=== PATIENT | male | born 1970 | race African-American/Black ===

== ENCOUNTER 2025-02-01 08:15 | Emergency (ER) | payer SELFPAY ==
[2025-02-01 08:23] VITALS: BMI 33.0
[2025-02-01] MEDS ORDERED: ASPIRIN 81 MG CHEWABLE TABLETS ONE ×2 (08:52→09:22)
[2025-02-01] MEDS: ASPIRIN 81 MG CHEWABLE TABLETS PO ONE ×2 (08:55→09:30)
[2025-02-01 09:12] LABS: ABSOLUTE IMMATURE GRANULOCYTES 0.01 x10^3/uL (0.0-0.031); BASOPHILS # 0.03 x10^3/uL (0.01-0.08); EOSINOPHIL % 1.5 % (0.8-7.0); EOSINOPHILS # 0.09 x10^3/uL (0.04-0.54); HEMOGLOBIN 14.5 g/dL (13.7-17.5); MCHC 30.2 g/dl (32.3-36.5); MEAN CELL VOLUME 67.3 fl (79.0-92.2); MEAN PLT VOLUME 9.3 fl (9.4-12.4); MONOCYTE # 0.52 x10^3/uL (0.30-0.82); MONOCYTE % 8.6 % (5.3-12.2); PLATELET COUNT 262 x10^3/uL (163-337); RDW 18.3 % (12.2-16.1)
[2025-02-01] MEDS ORDERED: HEPARIN NA (PORCINE) 5,000 UNITS/ML 1ML VIAL ONE (09:19)
[2025-02-01] MEDS ORDERED: HEPARIN NA (PORCINE) 5,000 UNITS/ML 1ML VIAL IVPUSH PRN ×2 (09:20)
[2025-02-01 09:22] LABS: POTASSIUM 3.8 mmol/L (3.5-5.1)
[2025-02-01 09:25] LABS: CALCIUM 9.8 mg/dL (8.5-10.1)
[2025-02-01 09:25] LABS: INR 1.04 (0.83-1.09); PROTHROMBIN TIME (PATIENT) 11.4 SEC (9.7-13.0)
[2025-02-01 09:26] LABS: ALBUMIN 4.1 g/dl (3.4-5.0); BLOOD UREA NITROGEN 9.3 mg/dL (7-18)
[2025-02-01 09:28] LABS: ACTIVATED PTT 31.5 SECONDS (25.2-36.5)
[2025-02-01 09:29] LABS: CREATININE 1.1 mg/dL (0.55-1.3)
[2025-02-01 09:30] LABS: BILIRUBIN,TOTAL 1.2 mg/dL (0.2-1); TOT PROT 7.6 g/dl (6.4-8.2)
[2025-02-01] MEDS: HEPARIN NA (PORCINE) 5,000 UNITS/ML 1ML VIAL IVPUSH ONE (09:30)
[2025-02-01] MEDS: HEPARIN INFUSION - 25,000 UNITS/500 ML INFUS.BAG IVPB SCH (09:44)
[2025-02-01 09:51] VITALS: BP 133/85; PULSE 90; RESP 18; TEMP 98
[2025-02-01 15:08] LABS: HIV INTERPRETATION NEGATIVE (NEGATIVE)
[2025-02-01 15:09] LABS: HCV DIAGNOSTIC IN-HOUSE W/RFLX NON-REACTIVE (NONREACTIVE)
== END 2025-02-01 10:21 | disposition short-term general hospital (02) ==
LOC: JER 08:15
DX: I21.3 ST elevation (STEMI) myocardial infarction of unspecified site (principal); R42 Dizziness and giddiness; R11.0 Nausea; R07.89 Other chest pain
CPT/HCPCS: 36415; 71045-TC-FY; 80053; 84484; 85025; 85610; 85730; 86803; 87389; 93005; 93010; 99291; J1644